=== PATIENT | male | born 1955 | race Caucasian/White ===

== ENCOUNTER 2020-12-10 15:36 | Emergency (ER) | payer OTHER ==
[2020-12-10 15:55] VITALS: BP 135/76; PULSE 88; TEMP 98; BMI 27.8
== END 2020-12-10 16:52 | disposition home or self-care (01) ==
LOC: JERFT 15:36
DX: S61.210A Laceration without foreign body of right index finger without damage to nail, initial encounter (principal); W26.8XXA Contact with other sharp object(s), not elsewhere classified, initial encounter; Y92.9 Unspecified place or not applicable
CPT/HCPCS: 99283-25

== ENCOUNTER 2022-02-02 09:46 | Inpatient (IN) | payer OTHER ==
[2022-02-02] MEDS ORDERED: ALBUTEROL SO4 2.5/IPRATROPIUM 0.5 INH SOL 3 ML VIAL.NEB. NEB ONE (10:40)
[2022-02-02] MEDS ORDERED: ACETAMINOPHEN 325 MG TABLET (FP) PO ONE (10:46)
[2022-02-02] MEDS ORDERED: DEXAMETHASONE SOD PHOSPHATE 10 MG/1 ML VIAL IVPUSH ONE (10:46)
[2022-02-02] MEDS ORDERED: ACETAMINOPHEN 325 MG TABLET (FP) ONE (10:52)
[2022-02-02] MEDS ORDERED: DEXAMETHASONE SOD PHOSPHATE 10 MG/1 ML VIAL ONE (10:52)
[2022-02-02] MEDS: ALBUTEROL SO4 2.5/IPRATROPIUM 0.5 INH SOL 3 ML VIAL.NEB. NEB SCH ×3 (11:05→12:30)
[2022-02-02 11:42] LABS: BASO % 0.3 % (0-2.0); EOS % 3.2 % (0-4.5); HEMATOCRIT 43.3 % (35.4-49); HEMOGLOBIN 14.2 GM/dL (11.7-16.9); LYMPH % 11.2 % (8-40); MCH 32.6 pg (25.7-33.7); MCHC 32.9 g/dl (32.0-35.9); MEAN CELL VOLUME 99.2 fl (80-96); MEAN PLT VOLUME 8.4 fl (7.5-11.1); MONO % 6.5 % (3.8-10.2); NEUT % 78.8 % (42.8-82.8); PLATELET COUNT 123 10^3/uL (134-434); RBC 4.37 M/mm3 (4.00-5.60); RDW 14.9 % (11.9-15.9); WHITE BLOOD COUNT 5.4 K/mm3 (4.0-10.0)
[2022-02-02 12:06] LABS: BLOOD UREA NITROGEN 26.3 mg/dL (7-18); CALCIUM 9.6 mg/dL (8.5-10.1)
[2022-02-02 12:07] LABS: ALBUMIN 3.6 g/dl (3.4-5.0)
[2022-02-02 12:09] LABS: CREATININE 1.6 mg/dL (0.55-1.3)
[2022-02-02 12:11] LABS: BILIRUBIN,TOTAL 0.3 mg/dL (0.2-1); TOT PROT 6.7 g/dl (6.4-8.2)
[2022-02-02] MEDS ORDERED: MAGNESIUM SULF 50% (8.12 MEQ/2 ML-1 GM VIAL) IVPB ONE (12:38)
[2022-02-02] MEDS ORDERED: MAGNESIUM SULFATE IN WATER 2 GM/50 ML IVPB IVPB ONE (12:46)
[2022-02-02] MEDS: LACTATED RINGERS SOLUTION 1,000 ML IV SCH ×2 (15:43→22:30)
[2022-02-02] MEDS ORDERED: REMDESIVIR 200 MG in SODIUM CHLORIDE 250 ML IVPB ONE (17:00)
[2022-02-02] MEDS: INSULIN SLIDING SCALE (NOVOLOG) 1 VIAL SQ SCH ×2 (17:43→22:42)
[2022-02-02] MEDS: HEPARIN NA (PORCINE) 5,000 UNITS/ML 1ML VIAL SQ SCH (22:31)
[2022-02-02 23:55] VITALS: BMI 25.8
[2022-02-03] MEDS: HEPARIN NA (PORCINE) 5,000 UNITS/ML 1ML VIAL SQ SCH ×3 (06:31→22:57)
[2022-02-03] MEDS: INSULIN SLIDING SCALE (NOVOLOG) 1 VIAL SQ SCH ×4 (06:32→23:19)
[2022-02-03 09:37] LABS: BASO % 0.2 % (0-2.0); EOS % 0.1 % (0-4.5); HEMATOCRIT 42.6 % (35.4-49); HEMOGLOBIN 14.2 GM/dL (11.7-16.9); LYMPH % 8.4 % (8-40); MCH 33.3 pg (25.7-33.7); MCHC 33.4 g/dl (32.0-35.9); MEAN CELL VOLUME 99.7 fl (80-96); MEAN PLT VOLUME 8.2 fl (7.5-11.1); MONO % 6.7 % (3.8-10.2); NEUT % 84.6 % (42.8-82.8); PLATELET COUNT 127 10^3/uL (134-434); RBC 4.28 M/mm3 (4.00-5.60); RDW 14.5 % (11.9-15.9); WHITE BLOOD COUNT 8.6 K/mm3 (4.0-10.0)
[2022-02-03 10:14] LABS: ALBUMIN 3.4 g/dl (3.4-5.0); BLOOD UREA NITROGEN 27.5 mg/dL (7-18)
[2022-02-03 10:15] LABS: CALCIUM 9.3 mg/dL (8.5-10.1); MAGNESIUM 1.9 mg/dL (1.8-2.4)
[2022-02-03 10:17] LABS: BILIRUBIN,TOTAL 0.4 mg/dL (0.2-1); CREATININE 1.3 mg/dL (0.55-1.3); TOT PROT 6.8 g/dl (6.4-8.2)
[2022-02-03] MEDS: DEXAMETHASONE 4 MG TABLET (FP) PO SCH (10:19)
[2022-02-03] MEDS: REMDESIVIR 100 MG in SODIUM CHLORIDE 250 ML IVPB SCH (10:19)
[2022-02-03] MEDS: ZINC SULFATE 220 MG CAPSULE (FP) PO SCH (10:20)
[2022-02-03] MEDS ORDERED: ALBUTEROL SO4 HFA INHALER IH PRN (14:30)
[2022-02-03] MEDS ORDERED: ARTIFICIAL TEARS (POLYVINYL ALCOHOL) OPTH DROPS OU PRN (14:30)
[2022-02-03] MEDS: LACTATED RINGERS SOLUTION 1,000 ML IV SCH (16:45)
[2022-02-03] MEDS ORDERED: INSULIN (NOVOLOG) ASPART 100 UNITS/ML 10ML VIAL ONE (17:16)
[2022-02-03] MEDS ORDERED: INSULIN (LEVEMIR) 100 UNITS/ML UNITS SQ ONE ×2 (17:16→23:03)
[2022-02-03 22:57] VITALS: RESP 20
[2022-02-03] MEDS: ATORVASTATIN CA 40 MG TABLET (FP) PO SCH (23:06)
[2022-02-03] MEDS: MAGNESIUM OXIDE 400 MG TABLET (FP) PO SCH (23:07)
[2022-02-03] MEDS: BUDESONIDE/FORMETEROL FUMARATE 80/4.5 mcg INHALER IH SCH (23:09)
[2022-02-03] MEDS: LATANOPROST 0.005% OPHTH SOLN 2.5ML BOTTLE OU SCH (23:09)
[2022-02-03] MEDS: INSULIN (LEVEMIR) 100 UNITS/ML UNITS SQ SCH (23:42)
[2022-02-04] MEDS: HEPARIN NA (PORCINE) 5,000 UNITS/ML 1ML VIAL SQ SCH ×3 (05:49→23:23)
[2022-02-04] MEDS: INSULIN SLIDING SCALE (NOVOLOG) 1 VIAL SQ SCH ×4 (06:21→23:40)
[2022-02-04 08:59] LABS: BASO % 0.6 % (0-2.0); EOS % 0.2 % (0-4.5); HEMATOCRIT 45.5 % (35.4-49); HEMOGLOBIN 15.2 GM/dL (11.7-16.9); LYMPH % 13.7 % (8-40); MCH 33.1 pg (25.7-33.7); MCHC 33.3 g/dl (32.0-35.9); MEAN CELL VOLUME 99.4 fl (80-96); MEAN PLT VOLUME 8.5 fl (7.5-11.1); NEUT % 80.5 % (42.8-82.8); PLATELET COUNT 142 10^3/uL (134-434); RBC 4.58 M/mm3 (4.00-5.60); RDW 14.7 % (11.9-15.9)
[2022-02-04] MEDS: ZINC SULFATE 220 MG CAPSULE (FP) PO SCH (09:16)
[2022-02-04] MEDS: MAGNESIUM OXIDE 400 MG TABLET (FP) PO SCH ×2 (09:16→23:23)
[2022-02-04] MEDS: DEXAMETHASONE 4 MG TABLET (FP) PO SCH (09:17)
[2022-02-04] MEDS: BUDESONIDE/FORMETEROL FUMARATE 80/4.5 mcg INHALER IH SCH ×2 (09:18→23:40)
[2022-02-04 09:31] LABS: ALBUMIN 3.6 g/dl (3.4-5.0); BLOOD UREA NITROGEN 31.5 mg/dL (7-18); CALCIUM 9.7 mg/dL (8.5-10.1)
[2022-02-04 09:34] LABS: CREATININE 1.4 mg/dL (0.55-1.3)
[2022-02-04 09:35] LABS: BILIRUBIN,TOTAL 0.6 mg/dL (0.2-1)
[2022-02-04] MEDS ORDERED: PATIENT'S OWN MEDICATION (NON-FORMULARY) (Jardiance 10 MG) PO SCH (10:00)
[2022-02-04] MEDS: SENNOSIDES 8.6MG TABLET (FP) PO SCH (10:29)
[2022-02-04] MEDS: PANTOPRAZOLE 20 MG TABLET PO SCH (10:29)
[2022-02-04] MEDS: REMDESIVIR 100 MG in SODIUM CHLORIDE 250 ML IVPB SCH (10:29)
[2022-02-04] MEDS: amLODIPine BESYLATE 2.5 MG TABLET (FP) PO SCH (10:29)
[2022-02-04] MEDS ORDERED: INSULIN (NOVOLOG) ASPART 100 UNITS/ML 10ML VIAL ONE ×3 (12:03→21:19)
[2022-02-04] MEDS: PIPERACILLIN/TAZOB 3.375 GM 3.375 GM in DEXTROSE 5%-WATER - 50 ML IVPB SCH ×2 (15:09→18:38)
[2022-02-04] MEDS ORDERED: INSULIN (LEVEMIR) 100 UNITS/ML UNITS SQ ONE (21:06)
[2022-02-04] MEDS: ATORVASTATIN CA 40 MG TABLET (FP) PO SCH (23:23)
[2022-02-04] MEDS: INSULIN (LEVEMIR) 100 UNITS/ML UNITS SQ SCH (23:23)
[2022-02-04] MEDS: LATANOPROST 0.005% OPHTH SOLN 2.5ML BOTTLE OU SCH (23:40)
[2022-02-05] MEDS: PIPERACILLIN/TAZOB 3.375 GM 3.375 GM in DEXTROSE 5%-WATER - 50 ML IVPB SCH ×3 (01:00→17:16)
[2022-02-05] MEDS: INSULIN SLIDING SCALE (NOVOLOG) 1 VIAL SQ SCH ×3 (06:39→17:16)
[2022-02-05] MEDS: HEPARIN NA (PORCINE) 5,000 UNITS/ML 1ML VIAL SQ SCH ×2 (06:40→15:08)
[2022-02-05] MEDS ORDERED: SENNOSIDES 8.6MG TABLET (FP) PO SCH (10:45)
[2022-02-05] MEDS: ZINC SULFATE 220 MG CAPSULE (FP) PO SCH (10:55)
[2022-02-05] MEDS: amLODIPine BESYLATE 2.5 MG TABLET (FP) PO SCH (10:55)
[2022-02-05] MEDS: MAGNESIUM OXIDE 400 MG TABLET (FP) PO SCH (10:56)
[2022-02-05] MEDS: PANTOPRAZOLE 20 MG TABLET PO SCH (10:56)
[2022-02-05] MEDS: DEXAMETHASONE 4 MG TABLET (FP) PO SCH (10:57)
[2022-02-05] MEDS: BUDESONIDE/FORMETEROL FUMARATE 80/4.5 mcg INHALER IH SCH (10:57)
[2022-02-05 11:11] VITALS: BP 119/51; PULSE 88; TEMP 97.8
[2022-02-05] MEDS: SENNOSIDES 8.6MG TABLET (FP) PO SCH (11:11)
== END 2022-02-05 18:20 | disposition home or self-care (01) | DRG 137 ==
LOC: JER 09:46 → JERBED 14:38 → J7W 22:19
PROVIDERS: ADMIT Internal Medicine; ATTEND Internal Medicine
PROC: XW033E5 Introduction of Remdesivir Anti-infective into Peripheral Vein, Percutaneous Approach, New Technology Group 5 (ICD-10-PCS; principal; 2022-02-02)
DX: U07.1 COVID-19 (principal); J44.1 Chronic obstructive pulmonary disease with (acute) exacerbation; I10 Essential (primary) hypertension; E11.9 Type 2 diabetes mellitus without complications; E78.5 Hyperlipidemia, unspecified; F17.210 Nicotine dependence, cigarettes, uncomplicated; R09.02 Hypoxemia; N17.9 Acute kidney failure, unspecified; J18.9 Pneumonia, unspecified organism; Z79.4 Long term (current) use of insulin
CPT/HCPCS: 0241U-QW; 36415; 71045-TC-FY; 80053; 82728; 82962; 83735; 84100; 85025; 86140; 93005; 93010; 94010; 97116-GP; 97161-GP; 99285-25; C9399; J1100; J1644

== ENCOUNTER 2022-09-20 16:42 | Emergency (ER) | payer OTHER ==
[2022-09-20 17:07] VITALS: TEMP 98.9; BMI 23.8
[2022-09-20] MEDS ORDERED: ACETAMINOPHEN 500 MG TABLET (FP) PO ONE (17:46)
[2022-09-20] MEDS ORDERED: ACETAMINOPHEN 325 MG TABLET (FP) ONE (17:49)
[2022-09-20] MEDS ORDERED: ACETAMINOPHEN 325 MG TABLET (FP) PO ONE (17:49)
[2022-09-20 20:35] VITALS: BP 155/85; PULSE 84; RESP 18
== END 2022-09-20 21:00 | disposition home or self-care (01) ==
LOC: JER 16:42
DX: M25.561 Pain in right knee (principal)
CPT/HCPCS: 73502-TC-RT-FY; 73562-TC-RT-FY; 99284-25